=== PATIENT | female | born 1960 | race Caucasian/White ===

== ENCOUNTER 2018-11-29 18:42 | Inpatient (IN) | payer OTHER ==
--- NOTE | 2018-11-29 18:48 | PDOC ---
Rapid Medical Evaluation Chief Complaint: Altered Mental Status Time Seen by Provider: 11/29/18 18:44 Medical Evaluation: Allergies Allergy/AdvReac Type Severity Reaction Status Date / Time No Known Allergies Allergy Verified 01/10/15 20:24 11/29/18 18:45 I have performed a brief in-person evaluation of this patient. The patient presents with a chief complaint of: dizziness and AMS as per family about 45 minutes ago Pertinent physical exam findings:No distress I have ordered the following:stroke work up The patient will proceed to the ED for further evaluation. Discharge Disposition - Diagnosis Altered mental status - Referrals - Patient Instructions - Post Discharge Activity
--- NOTE | 2018-11-29 19:07 | PDOC ---
History of Present Illness - General Chief Complaint: Altered Mental Status Stated Complaint: AMS NUMBNESS Time Seen by Provider: 11/29/18 18:44 - History of Present Illness Initial Comments: The pt is a 58F w/ no reported PMH who presents for evaluation of a short period of memory loss today. The pt's family member reports that the pt had a period of not being able to remember what she was doing/what was happening which has since resolved. During that time she endorses mild blurry vision. At this time the pt reports that that period is starting to come back to her and since that time she has not had any confusion/memory loss. Her vision is also at baseline currently. Of note, patient reports approximately 1 month of intermittent episodes of dizziness/blurry vision that occur spontaneously at rest and resolve spontaneously as well. She states she think the episodes are related to times of emotional stress but is unsure. She has never had an episode of memory loss before. Denies fevers/chills, CAMPBELL, chest pain, trouble breathing, abdominal pain, N/V/C/D , or changes in sensation/strength 11/29/18 19:40 NIH Stroke Scale - Last Known Well Date/Time & Onset Date Last Known Well: 11/29/18 Time Last Known Well: 16:00 - Initial Evaluation Level of consciousness: Alert Ask patient the month and their age: Answers both correctly Ask patient to open & close eyes; make fist and let go: Obeys both correctly Best gaze (horizontal eye movement): Normal Visual field testing: No visual field loss Facial paresis (Show teeth/raise eyebrows/close eyes tight): Normal symmetrical movement Motor Function: Left Arm: Normal Motor Function: Right Arm: Normal (extends arm 90 (or 45) degrees for 10 seconds without drift Motor Function: Left Leg: Normal (extends leg 30 degrees for 5 seconds without drift) Motor Function: Right Leg: Normal (extends leg 30 degrees for 5 seconds without drift) Limb Ataxia: No ataxia Sensory(Use pinprick test arms,legs,trunk,face/side to side): Normal Best language (Describe picture, name items, read sentences): No Aphasia Dysarthria (read several words): Normal articulation Extinction and Inattention: No abnormality - Total Score NIH Stroke Scale Score: 0 Past History - Past Medical History Allergies/Adverse Reactions: Allergies Allergy/AdvReac Type Severity Reaction Status Date / Time No Known Allergies Allergy Verified 11/29/18 18:46 Home Medications: Ambulatory Orders Montelukast Na [Singulair -] 10 mg PO HS #15 tablet 01/10/15 COPD: No HTN: Yes - Immunization History Immunization Up to Date: Yes - Suicide/Smoking/Psychosocial Hx Smoking History: Never smoked Have you smoked in the past 12 months: No Information on smoking cessation initiated: No Hx Alcohol Use: No Drug/Substance Use Hx: No Substance Use Type: None Review of Systems - Review of Systems Able to Perform ROS?: Yes Comments:: GENERAL/CONSTITUTIONAL: No fever or chills HEAD, EYES, EARS, NOSE AND THROAT: No change in vision or hearing changes. No sore throat CARDIOVASCULAR: No chest pain or shortness of breath RESPIRATORY: Denies cough, hemoptysis GASTROINTESTINAL: No nausea, vomiting, diarrhea or constipation GENITOURINARY: No dysuria, frequency, or change in urination MUSCULOSKELETAL: No joint or muscle swelling or pain. No neck or back pain SKIN: No rash ENDOCRINE: No increased thirst. No abnormal weight change HEMATOLOGIC/LYMPHATIC: No anemia, easy bleeding, or history of blood clots ALLERGIC/IMMUNOLOGIC: No hives or skin allergy 11/29/18 19:07 *Physical Exam - Vital Signs Last Vital Signs Temp Pulse Resp BP Pulse Ox 92 H 16 155/92 98 11/29/18 18:46 11/29/18 18:46 11/29/18 18:46 11/29/18 18:46 - Physical Exam Comments: GENERAL: Awake, alert, and oriented to person/place/time, in no acute distress HEAD: No signs of trauma, normocephalic, atraumatic EYES: PERRLA, EOMI, sclera anicteric, conjunctiva clear ENT: Hearing grossly normal, nares patent, oropharynx clear without exudates. Moist mucosa LUNGS: No distress, speaks full sentences, clear to auscultation bilaterally HEART: Regular rate and rhythm, normal S1 and S2, no murmurs appreciated, peripheral pulses normal and equal bilaterally ABDOMEN: Soft, nontender, normoactive bowel sounds. No guarding, no rebound EXTREMITIES: Normal inspection, Normal range of motion, no edema. No clubbing or cyanosis NEUROLOGICAL: Cranial nerves II through XII grossly intact. Normal speech, no focal sensorimotor deficits SKIN: Warm, Dry 11/29/18 19:07 ED Treatment Course - LABORATORY CBC & Chemistry Diagram: 11/29/18 18:57 11/29/18 18:57 Medical Decision Making - Medical Decision Making The pt is a 58F w/ no reported PMH who presents for evaluation of a 20 minute period of time where she could not recall what she had done today. Ddx: TIA/stroke, global transient amnesia PMD: Dr. Gleason ED Course labs sent CXR, CT Head ECG 11/29/18 19:54 No leukocytosis No anemia Lytes wnl No ASHLIE LFTs wnl Trop I neg CT Head w/o acute pathology 11/29/18 19:57 Case discussed w/ Dr. Szymanski, recommends ASA 81mg PO once. Pt states she took ASA 81mg just prior to leaving to come to the ED. 11/29/18 20:09 Pt now states she does have a history of HTN and takes Losartan daily, which she took today. Plan for admission to stroke obs 11/29/18 20:19 *DC/Admit/Observation/Transfer Diagnosis at time of Disposition: Altered mental status Qualifiers: Altered mental status type: transient alteration of awareness Qualified Code(s) : R40.4 - Transient alteration of awareness - Discharge Dispostion Condition at time of disposition: Good Decision to Admit order: Yes - Referrals - Patient Instructions - Post Discharge Activity
[2018-11-29 19:20] LABS: BASO % 0.4 % (0-2.0); EOS % 1.3 % (0-4.5); HEMOGLOBIN 13.3 GM/dL (10.7-15.3); LYMPH % 44.4 % (8-40); MCH 29.3 pg (25.7-33.7); MCHC 33.1 g/dl (32.0-36.0); MEAN CELL VOLUME 88.6 fl (80-96); MEAN PLT VOLUME 7.8 fl (7.5-11.1); NEUT % 46.9 % (42.8-82.8); PLATELET COUNT 269 K/MM3 (134-434); RBC 4.52 M/mm3 (3.60-5.2); RDW 13.9 % (11.6-15.6)
[2018-11-29 19:32] LABS: INR 0.99 (0.83-1.09); PROTHROMBIN TIME (PATIENT) 11.7 SEC (9.7-13.0)
--- NOTE | 2018-11-29 19:37 | PDOC ---
Attending Attestation - HPI HPI: 11/29/18 20:05 The patient is a 58 YOF with no PMH who presents for evaluation of memory loss earlier today. The family at bedside states this episode of memory loss lasted for 20 minutes. Patient could recognize the people in her surroundings but was unable to recall the events from earlier today. She reports the episode of memory loss has resolved on its own. She denies similar episodes in the past. She also notes she has had blurry vision and dizziness intermittently for the past 2 months. Patient also reports significant stress at home with her daughter. The patient denies chest pain, shortness of breath, headache. Denies fever, chills, nausea, vomit, diarrhea and constipation. Denies dysuria, frequency, urgency and hematuria. Allergies: NKA Past surgical history: None reported. Social history: No reported alcohol, drug or cigarette use. PCP: Dr. Gleason - Physicial Exam PE: 11/29/18 20:13 Agree with resident's exam. <Kim Connell - Last Filed: 11/29/18 20:05> - Resident Resident Name: Felix Prince - ED Attending Attestation I have performed the following: I have examined & evaluated the patient, The case was reviewed & discussed with the resident, I agree w/resident's findings & plan - Medical Decision Making 11/29/18 20:27 58-year-old female with an episode of confusion Presentation likely consistent with an episode of TGA though patient has had some intermittent dizziness over the last few weeks She will be admitted to medical service for TIA evaluation Call placed to neurology by the emergency department resident who has recommended low-dose aspirin which patient has already taken She is currently asymptomatic at this time, surrounded by family who confirms history and baseline mental status <Yenifer Bowie - Last Filed: 11/29/18 20:30>
[2018-11-29 19:47] LABS: ALK PHOS 107 U/L (45-117); ANION GAP 8 MMOL/L (8-16); BILIRUBIN,TOTAL 0.3 mg/dL (0.2-1); BLOOD UREA NITROGEN 14 mg/dL (7-18); CALCIUM 8.5 mg/dL (8.5-10.1); CHLORIDE 106 mmol/L (98-107); CO2 27 mmol/L (21-32); CREATININE 0.7 mg/dL (0.55-1.3); GLUCOSE,RANDOM 120 mg/dL (74-106); POTASSIUM 3.5 mmol/L (3.5-5.1); SGOT/AST 11 U/L (15-37); SGPT/ALT 38 U/L (13-61); SODIUM 142 mmol/L (136-145); TOT PROT 7.8 g/dl (6.4-8.2)
[2018-11-29] MEDS ORDERED: ASPIRIN COATED 81 MG TABLET.EC PO ONE (20:09)
[2018-11-29] MEDS ORDERED: ASPIRIN COATED 81 MG TABLET.EC ONE (20:12)
[2018-11-29] MEDS ORDERED: ACETAMINOPHEN 325 MG TABLET (FP) PO PRN (20:16)
[2018-11-29] MEDS ORDERED: ONDANSETRON 4 MG/2 ML VIAL IVPUSH PRN (20:16)
--- NOTE | 2018-11-29 20:21 | HP ---
CHIEF COMPLAINT: Memory loss PCP: Dr. Gleason HISTORY OF PRESENT ILLNESS: This is a 58-year-old female with a history of HTN who presented to the ED today for evaluation of an approximately 20-minute episode of confusion and amnesia associated with tongue and jaw numbness occurring at approximately 6pm today. The patient denies any associated changes in speech, gait, facial symmetry, strength, or sensation. 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 Smoking: Never Alcohol: Occasional Drugs: None Family History: Significant for mother with CVA age 78 Allergies No Known Allergies Allergy (Verified 11/29/18 18:46) HOME MEDICATIONS: Home Medications Medication Instructions Recorded Montelukast Na [Singulair -] 10 mg PO HS #15 tablet 01/10/15 REVIEW OF SYSTEMS CONSTITUTIONAL: Absent: fever, chills, diaphoresis, generalized weakness, malaise, loss of appetite, weight change HEENT: Absent: rhinorrhea, nasal congestion, throat pain, throat swelling, difficulty swallowing, mouth swelling, ear pain, eye pain, visual changes CARDIOVASCULAR: Absent: chest pain, syncope, palpitations, irregular heart rate, lightheadedness , peripheral edema RESPIRATORY: Absent: cough, shortness of breath, dyspnea with exertion, orthopnea, wheezing, stridor, hemoptysis GASTROINTESTINAL: Absent: abdominal pain, abdominal distension, nausea, vomiting, diarrhea, constipation, melena, hematochezia GENITOURINARY: Absent: dysuria, frequency, urgency, hesitancy, hematuria, flank pain, genital pain MUSCULOSKELETAL: Absent: myalgia, arthralgia, joint swelling, back pain, neck pain SKIN: Absent: rash, itching, pallor HEMATOLOGIC/IMMUNOLOGIC: Absent: easy bleeding, easy bruising, lymphadenopathy, frequent infections ENDOCRINE: Absent: unexplained weight gain, unexplained weight loss, heat intolerance, cold intolerance NEUROLOGIC: See HPI Absent: headache, focal weakness or paresthesias, dizziness, unsteady gait, seizure, bladder or bowel incontinence PSYCHIATRIC: Recent feelings of stress/anxiety Absent: depression, suicidal or homicidal ideation, hallucinations. PHYSICAL EXAMINATION Vital Signs - 24 hr 11/29/18 18:46 Pulse Rate 92 H Respiratory 16 Rate Blood Pressure 155/92 O2 Sat by Pulse 98 Oximetry (%) GENERAL: Awake, alert, and fully oriented, in no acute distress. HEAD: Normal with no signs of trauma. EYES: Pupils equal, round and reactive to light, extraocular movements intact, sclera anicteric, conjunctiva clear. No lid lag. EARS, NOSE, THROAT: Ears normal, nares patent, oropharynx clear without exudates. Moist mucous membranes. NECK: Normal range of motion, supple without lymphadenopathy, JVD, or masses. LUNGS: Breath sounds equal, clear to auscultation bilaterally. No wheezes, and no crackles. No accessory muscle use. HEART: Regular rate and rhythm, normal S1 and S2 without murmur, rub or gallop. ABDOMEN: Soft, nontender, not distended, normoactive bowel sounds, no guarding, no rebound, no masses. No hepatomegaly or splenomegaly. MUSCULOSKELETAL: Normal range of motion at all joints. No bony deformities or tenderness. No CVA tenderness. UPPER EXTREMITIES: 2+ pulses, warm, well-perfused. No cyanosis. No clubbing. No peripheral edema. LOWER EXTREMITIES: 2+ pulses, warm, well-perfused. No calf tenderness. No peripheral edema. NEUROLOGICAL: Cranial nerves II-XII intact. Normal speech. PSYCHIATRIC: Cooperative. Good eye contact. Appropriate mood and affect. SKIN: Warm, dry, normal turgor, no rashes or lesions noted, normal capillary refill. Laboratory Results - last 24 hr 11/29/18 11/29/18 11/29/18 18:57 18:57 18:57 WBC 8.0 RBC 4.52 Hgb 13.3 Hct 40.0 MCV 88.6 MCH 29.3 MCHC 33.1 RDW 13.9 Plt Count 269 MPV 7.8 Absolute Neuts (auto) 3.7 Neutrophils % 46.9 Lymphocytes % 44.4 H Monocytes % 7.0 Eosinophils % 1.3 Basophils % 0.4 Nucleated RBC % 0 PT with INR 11.70 INR 0.99 Sodium 142 Potassium 3.5 Chloride 106 Carbon Dioxide 27 Anion Gap 8 BUN 14 Creatinine 0.7 Creat Clearance w eGFR 86.25 Random Glucose 120 H Calcium 8.5 Total Bilirubin 0.3 AST 11 L ALT 38 Alkaline Phosphatase 107 Creatine Kinase 108 Troponin I < 0.02 Total Protein 7.8 Albumin 4.0 ASSESSMENT/PLAN: 58-year-old female with transient confusion/amnesia and jaw/ tongue numbness concerning for TIA. Problem List - Problem (1) Altered mental status Assessment/Plan: -Symptoms resolved -Monitor neurologic exam -Neurology consultation requested -MRI brain w/o contrast -ASA 81mg daily Code(s): R41.82 - ALTERED MENTAL STATUS, UNSPECIFIED Qualifiers: Altered mental status type: transient alteration of awareness Qualified Code(s): R40.4 - Transient alteration of awareness (2) Hypertension Assessment/Plan: -Near goal -Continue Losartan Code(s): I10 - ESSENTIAL (PRIMARY) HYPERTENSION (3) DVT prophylaxis Assessment/Plan: -Low risk -Early ambulation Code(s): [id number] - Visit type - Emergency Visit Emergency Visit: Yes ED Registration Date: 11/29/18 Care time: The patient presented to the Emergency Department on the above date and was hospitalized for further evaluation of their emergent condition. - New Patient This patient is new to me today: Yes Date on this admission: 11/29/18 - Critical Care Critical Care patient: No
[2018-11-29] MEDS: DOCUSATE SODIUM 100 MG CAPSULE (FP) PO SCH (22:02)
[2018-11-29] MEDS ORDERED: HALOPERIDOL 5 MG TABLET (FP) PO ONE (22:13)
[2018-11-30 00:03] VITALS: BMI 36.8
[2018-11-30] MEDS: DOCUSATE SODIUM 100 MG CAPSULE (FP) PO SCH ×3 (06:35→22:33)
[2018-11-30 07:44] LABS: BASO % 0.5 % (0-2.0); EOS % 1.9 % (0-4.5); HEMATOCRIT 38.2 % (32.4-45.2); HEMOGLOBIN 12.6 GM/dL (10.7-15.3); MCH 29.2 pg (25.7-33.7); MEAN CELL VOLUME 88.6 fl (80-96); MEAN PLT VOLUME 8.2 fl (7.5-11.1); MONO % 7.1 % (3.8-10.2); NEUT % 37.5 % (42.8-82.8); PLATELET COUNT 267 K/MM3 (134-434); RBC 4.31 M/mm3 (3.60-5.2); RDW 13.6 % (11.6-15.6); WHITE BLOOD COUNT 4.9 K/mm3 (4.0-10.0)
[2018-11-30 08:37] LABS: ALBUMIN 3.6 g/dl (3.4-5.0); ALK PHOS 87 U/L (45-117); ANION GAP 9 MMOL/L (8-16); BILIRUBIN,TOTAL 0.6 mg/dL (0.2-1); BLOOD UREA NITROGEN 11 mg/dL (7-18); CALCIUM 8.2 mg/dL (8.5-10.1); CHLORIDE 108 mmol/L (98-107); CHOLESTEROL 199 mg/dL (50-200); CO2 25 mmol/L (21-32); CREATININE 0.6 mg/dL (0.55-1.3); GLUCOSE,RANDOM 103 mg/dL (74-106); HDL CHOLESTEROL 50 mg/dL (40-60); POTASSIUM 3.7 mmol/L (3.5-5.1); SGOT/AST 10 U/L (15-37); SGPT/ALT 33 U/L (13-61); SODIUM 143 mmol/L (136-145); TOT PROT 6.9 g/dl (6.4-8.2); TRIGLYCERIDES 93 mg/dL (0-150)
[2018-11-30] MEDS: ASPIRIN COATED 81 MG TABLET.EC PO SCH (09:47)
[2018-11-30] MEDS: LOSARTAN POTASSIUM 50 MG TABLET (FP) PO SCH (09:47)
--- NOTE | 2018-11-30 11:47 | EKG ---
Test Reason : Blood Pressure : / mmHG Vent. Rate : 101 BPM Atrial Rate : 101 BPM P-R Int : 142 ms QRS Dur : 080 ms QT Int : 340 ms P-R-T Axes : 034 006 031 degrees QTc Int : 440 ms POOR DATA QUALITY, INTERPRETATION MAY BE ADVERSELY AFFECTED SINUS TACHYCARDIA OTHERWISE NORMAL ECG NO PREVIOUS ECGS AVAILABLE Confirmed by PAUL ARRIOLA, CICI ([id number]) on 11/30/2018 11:47:37 AM Referred By: Confirmed By:CICI MILLER MD
[2018-11-30 13:23] LABS: EPI CELLS 3.6 /HPF (0-5); URINE APPEARANCE CLEAR; URINE BACTERIA 140.9 /hpf (NEGATIVE); URINE BILIRUBIN NEGATIVE (NEGATIVE); URINE CASTS 2 /hpf (0-8); URINE COLOR YELLOW; URINE GLUCOSE (UA) NEGATIVE (NEGATIVE); URINE KETONE NEGATIVE (NEGATIVE); URINE LEUK ESTERASE TRACE (NEGATIVE); URINE NITRITE NEGATIVE (NEGATIVE); URINE PROTEIN NEGATIVE (NEGATIVE); URINE RBC 2 /hpf (0-4); URINE UROBILINOGEN 0.2 mg/dL (0.2-1.0); URINE WBC 4 /hpf (0-5)
--- NOTE | 2018-11-30 13:43 | PN ---
Progress Note, Physician Chief Complaint: patient admitted for amnesia episode awaiting neurology eval and EEG awake alert today memory has improved able to remember what she ate yesterday morning for breakfast what her family remember at the bedside brought for her - Current Medication List Current Medications: Active Medications Acetaminophen (Tylenol -) 650 mg PO Q6H PRN PRN Reason: FEVER Aspirin (Ecotrin -) 81 mg PO DAILY [facility] Last Admin: 11/30/18 09:47 Dose: 81 mg Docusate Sodium (Colace -) 100 mg PO TID [facility] Last Admin: 11/30/18 06:35 Dose: 100 mg Losartan Potassium (Cozaar -) 50 mg PO DAILY [facility] Last Admin: 11/30/18 09:47 Dose: 50 mg Ondansetron HCl (Zofran Injection) 4 mg IVPUSH Q6H PRN PRN Reason: NAUSEA - Objective Vital Signs: Vital Signs Temperature 98.1 F 11/30/18 09:45 Pulse Rate 78 11/30/18 09:45 Respiratory Rate 18 11/30/18 09:45 Blood Pressure 142/80 11/30/18 09:45 O2 Sat by Pulse Oximetry (%) 99 11/30/18 00:34 Constitutional: Yes: Calm Cardiovascular: Yes: Regular Rate and Rhythm, S1, S2 Respiratory: Yes: CTA Bilaterally Gastrointestinal: Yes: Normal Bowel Sounds, Soft Edema: No Neurological: Yes: Alert Labs: CBC, BMP 11/30/18 05:30 11/30/18 05:30 INR, PTT INR 0.99 (0.83-1.09) 11/29/18 18:57 Problem List - Problems (1) Altered mental status Assessment/Plan: amnesia r/o possible seizure activity neurology consult EEG and MRI today possible dc home in AM if work up is negative b12,rpr ordered lipid panel noted inc LDL diet control Code(s): R41.82 - ALTERED MENTAL STATUS, UNSPECIFIED Qualifiers: Altered mental status type: transient alteration of awareness Qualified Code(s): R40.4 - Transient alteration of awareness
--- NOTE | 2018-11-30 16:33 | CONSULT ---
Consult - text type - Consultation Consultation Note: NEUROLOGY CONSULT APPRECIATED: Events reviewed and discussed with RN and Josemanuel Castillo PA. Patient examined. 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 Here after 2 weeks of 3, brief, episodes of seeing "brightness" in both eyes that last a few seconds. Also with intermittent "dizziness" when standing. Admitted after family concerned about confused speech for approximately 20 minutes that didn't "make sense." Pt, however, denies any confusion or change in speech and recalls being in the kitchen preparing food. Pt acknowledges occasional headaches, and notes extensive family history of headaches in her sister and mother (recent stroke in 70s). Head CT (reviewed): essentially normal study MRI of brain (reviewed): notable for chronic lacunar infarcts in right and left cerebellum with subacute infarct in left cerebellum superior/laterally. MR Angio (reviewed but not yet reported): Normal intracranial vasculature EKG Sinus Tach 100s B12 362 TSH 1.66 RPR nonreactive UA WBC=4 MACK: BP 155/92 on admission. Now 135/74. Cor reg. No bruit. Neck supple. NEURO:Awake, alert, cooperative. In NAD Mentation/Speech: OX [facility]. November 30, 2018. TRUMP. With good reversals. 2/3 recall @ 3. CNII-CNXII: EOM intact. Full quintero appreciated. No facial. Motor: No drift or tremor. Normal strength, tone, bulk and reflexes. Toes downgoing Coordination: No FTN dystaxia. Sensation: Normal to vibration. Romberg - Gait: Normal stride. Pt can walk on heels and toes without difficulty. Impression: 1. Normal neurological exam 2. 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 3. Transient neurological symptoms of uncertain etiology. Consider TIA, Migraine aura/complicated migraine, new-onset Complex partial seizures. Suggest: Agree with admission and telemetry to r/o arrhythmia. Obtain carotid duplex Await EEG monitoring Continue systolic BP control in 120s-130s Continue ASA, statin Thank you very much, Rocky Velazquez MD
--- NOTE | 2018-11-30 17:19 | CON.NEURO ---
Consult Consult Specialty:: Nessa Referred by:: ER - History of Present Illness History of Present Illness: 58 years old woman withPMH CAD OA Obesity Patient came in with episode of confusion [facility] yesterday No fall No headache No weight loss Last week episode of dizziness - History Source History Provided By: Patient, Medical Record Limitations to Obtaining History: No Limitations - Past Medical History ...: No - Alcohol/Substance Use Hx Alcohol Use: No - Smoking History Smoking history: Never smoked Have you smoked in the past 12 months: No Home Medications - Allergies Allergies/Adverse Reactions: Allergies Allergy/AdvReac Type Severity Reaction Status Date / Time No Known Allergies Allergy Verified 11/29/18 18:46 - Home Medications Home Medications: Ambulatory Orders Aspirin [ASA -] 81 mg PO PRN PRN 11/29/18 Losartan Potassium [Cozaar -] 50 mg PO DAILY 11/29/18 Family Disease History - Family Disease History Family History: Denies (CVA) Review of Systems - Review of Systems Constitutional: reports: No Symptoms Eyes: reports: No Symptoms HENT: reports: No Symptoms Neck: reports: No Symptoms Neurological: reports: Headache, Incoordination, Numbness Physical Exam-Neuro Vital Signs: Vital Signs Temperature 97.9 F 11/30/18 14:00 Pulse Rate 88 11/30/18 14:00 Respiratory Rate 18 11/30/18 09:45 Blood Pressure 146/78 11/30/18 14:00 O2 Sat by Pulse Oximetry (%) 96 11/30/18 09:00 Constitutional: Yes: Well Nourished Neck: Yes: WNL Cardiovascular: Yes: WNL Labs: CBC, BMP 11/30/18 05:30 11/30/18 05:30 INR, PTT INR 0.99 (0.83-1.09) 11/29/18 18:57 - Neuro Exam Level Of Consciousness: Yes: Oriented to Person, Oriented to Place, Oriented to Time Eyes: Yes: PERRLA Speech: WNL Dominant Hand: Right Cranial Nerves II-XII Intact: Yes Gag: Present DTR's: 0 Left Achilles, 0 Right Achilles, 1+ Left Bicep, 1+ Right Bicep, 1+ Left Brachioradialis, 1+ Right Brachioradialis Response to light touch: Normal Response to pain prick: Normal Response to temperature: Normal Motor Strength: 3/5: Left Arm, Right Arm, Left Leg, Right Leg Gait: Deferred Imaging - Results Cat Scan: Image Reviewed Problem List - Problems (1) Altered mental status Assessment/Plan: TIA vs TGA Doubt TIA Rule iut partial seizure 1. Neuro check 2. DVT prophylaxis 3. Weight loss 4. baby ASA 5. MRI brain with no consuelo 6. EEG Thank you for the kind referral Code(s): R41.82 - ALTERED MENTAL STATUS, UNSPECIFIED Qualifiers: Altered mental status type: transient alteration of awareness Qualified Code(s): R40.4 - Transient alteration of awareness
--- NOTE | 2018-11-30 17:42 | CON.CARD ---
Consult Consult Specialty:: Cardiology Reason for Consultation:: Possible TIA - History of Present Illness History of Present Illness: 58 F long standing HTN admitted with amnesia. Testing is negative so far but TIA is in differential. No previous heart disease that is known. No palpitations. telem NSR - Past Medical History ...: No - Alcohol/Substance Use Hx Alcohol Use: No - Smoking History Smoking history: Never smoked Have you smoked in the past 12 months: No Home Medications - Allergies Allergies/Adverse Reactions: Allergies Allergy/AdvReac Type Severity Reaction Status Date / Time No Known Allergies Allergy Verified 11/29/18 18:46 - Home Medications Home Medications: Ambulatory Orders Aspirin [ASA -] 81 mg PO PRN PRN 11/29/18 Losartan Potassium [Cozaar -] 50 mg PO DAILY 11/29/18 Review of Systems - Review of Systems Constitutional: reports: No Symptoms Eyes: reports: No Symptoms HENT: reports: No Symptoms Neck: reports: No Symptoms Cardiovascular: reports: No Symptoms Respiratory: reports: No Symptoms Gastrointestinal: reports: No Symptoms Genitourinary: reports: No Symptoms Musculoskeletal: reports: No Symptoms Vital Signs: Vital Signs Temperature 97.9 F 11/30/18 14:00 Pulse Rate 88 11/30/18 14:00 Respiratory Rate 18 11/30/18 09:45 Blood Pressure 146/78 11/30/18 14:00 O2 Sat by Pulse Oximetry (%) 96 11/30/18 09:00 Constitutional: Yes: Well Nourished, No Distress Eyes: Yes: Conjunctiva Clear HENT: Yes: Atraumatic, Normocephalic Neck: Yes: Supple, Trachea Midline Respiratory: Yes: Regular, CTA Bilaterally Gastrointestinal: Yes: Normal Bowel Sounds Renal/: Yes: WNL Cardiovascular: Yes: Regular Rate and Rhythm JVD: No Carotid Bruit: No PMI: Non-Displaced Heart Sounds: Yes: S1, S2 Murmur: No: Systolic Murmur, Diastolic Murmur Edema: No - Other Data Labs, Other Data: CBC, BMP 11/30/18 05:30 11/30/18 05:30 INR, PTT INR 0.99 (0.83-1.09) 11/29/18 18:57 Troponin, BNP 11/29/18 11/30/18 18:57 05:30 Troponin I < 0.02 < 0.02 Troponin, BNP 11/29/18 11/30/18 18:57 05:30 Troponin I < 0.02 < 0.02 Problem List - Problems (1) Altered mental status Code(s): R41.82 - ALTERED MENTAL STATUS, UNSPECIFIED Qualifiers: Altered mental status type: transient alteration of awareness Qualified Code(s): R40.4 - Transient alteration of awareness Assessment/Plan Admitted with amnesia. possibly transient global amnesia. Less likely TIA Echo Telem Out patient event monitor for 1 week
[2018-11-30] MEDS: ATORVASTATIN CA 40 MG TABLET (FP) PO SCH (22:32)
[2018-11-30] MEDS ORDERED: amLODIPine BESYLATE 5 MG TABLET (FP) PO ONE (23:00)
[2018-12-01] MEDS: DOCUSATE SODIUM 100 MG CAPSULE (FP) PO SCH ×3 (06:11→21:21)
[2018-12-01] MEDS: ASPIRIN COATED 81 MG TABLET.EC PO SCH ×2 (08:57→11:32)
[2018-12-01] MEDS: LOSARTAN POTASSIUM 50 MG TABLET (FP) PO SCH ×2 (08:57→11:31)
--- NOTE | 2018-12-01 09:49 | PN ---
Progress Note, Physician - Current Medication List Current Medications: Active Medications Acetaminophen (Tylenol -) 650 mg PO Q6H PRN PRN Reason: FEVER Aspirin (Ecotrin -) 81 mg PO DAILY [facility] Last Admin: 12/01/18 08:57 Dose: 81 mg Atorvastatin Calcium (Lipitor -) 40 mg PO HS [facility] Last Admin: 11/30/18 22:32 Dose: 40 mg Docusate Sodium (Colace -) 100 mg PO TID [facility] Last Admin: 12/01/18 06:11 Dose: Not Given Losartan Potassium (Cozaar -) 50 mg PO DAILY [facility] Last Admin: 12/01/18 08:57 Dose: 50 mg Ondansetron HCl (Zofran Injection) 4 mg IVPUSH Q6H PRN PRN Reason: NAUSEA - Objective Vital Signs: Vital Signs Temperature 97 F L 12/01/18 08:51 Pulse Rate 80 12/01/18 08:51 Respiratory Rate 20 12/01/18 08:51 Blood Pressure 159/90 12/01/18 08:51 O2 Sat by Pulse Oximetry (%) 97 11/30/18 21:00 Cardiovascular: Yes: Regular Rate and Rhythm Respiratory: Yes: Regular, CTA Bilaterally Gastrointestinal: Yes: Normal Bowel Sounds, Soft Neurological: Yes: Alert, Oriented Labs: CBC, BMP 11/30/18 05:30 11/30/18 05:30 INR, PTT INR 0.99 (0.83-1.09) 11/29/18 18:57 Problem List - Problems (1) CVA (cerebral vascular accident) Assessment/Plan: on statin/asa neurology consult EEG carotid lipid panel noted --on lipitor diet control Code(s): I63.9 - CEREBRAL INFARCTION, UNSPECIFIED (2) Altered mental status Assessment/Plan: --due to above Code(s): R41.82 - ALTERED MENTAL STATUS, UNSPECIFIED Qualifiers: Altered mental status type: transient alteration of awareness Qualified Code(s): R40.4 - Transient alteration of awareness (3) Hypertension Assessment/Plan: Vital Signs Period Temp Pulse Resp BP Sys/Deshpande Pulse Ox Last 24 Hr 97 F-98.6 F 75-88 20-20 125-167/76-97 97 monitor Code(s): I10 - ESSENTIAL (PRIMARY) HYPERTENSION
--- NOTE | 2018-12-01 11:23 | ECHO ---
Name: SHAYLA BERMEO Exam:Adult Echocardiogram Study Date: 12/01/2018 09:59 AM Age: 58 yrs Reason For Study: LVEF Height: 61 in Weight: 195 lb BSA: 1.9 m2 MMode/2D Measurements & Calculations IVSd: 0.92 cm Ao root diam: 2.6 cm LVIDd: 4.6 cm LA dimension: 3.1 cm LVIDs: 3.0 cm LVPWd: 0.73 cm EDV(Teich): 95.2 ml LVOT diam: 2.0 cm ESV(Teich): 33.9 ml TAPSE: 2.5 cm Doppler Measurements & Calculations MV E max uriah: 66.1 cm/sec Ao V2 max: 161.0 cm/sec MV A max uriah: 94.8 cm/sec Ao max P.4 mmHg MV E/A: 0.70 Ao V2 mean: 105.9 cm/sec MV dec time: 0.21 sec Ao mean P.3 mmHg Ao V2 VTI: 30.2 cm GERA(I,D): 2.3 cm2 AI P1/2t: 421.5 msec GERA(V,D): 2.3 cm2 AI max uriah: 400.7 cm/sec LV V1 max P.6 mmHg AI max P.2 mmHg LV V1 mean P.2 mmHg AI dec slope: 278.4 cm/sec2 LV V1 max: 118.5 cm/sec LV V1 mean: 85.5 cm/sec LV V1 VTI: 22.3 cm MR max uriah: 462.7 cm/sec SV(LVOT): 69.6 ml MR max P.9 mmHg TR max uriah: 225.1 cm/sec PI end-d uriah: 148.0 cm/sec TR max P.4 mmHg Med Peak E' Uriah: 5.3 cm/sec Med E/e': 12.4 Lat Peak E' Uriah: 7.5 cm/sec Lat E/e': 8.8 Left Ventricle There is borderline concentric left ventricular hypertrophy. The left ventricular ejection fraction i s normal. Ejection Fraction = 60%. The transmitral spectral Doppler flow pattern is suggestive of impaired LV relaxation. The left ventricular wall motion is normal. Right Ventricle The right ventricular systolic function is normal. Atria Normal left and right atrial size and function. Mitral Valve There is mild mitral valve thickening. There is mild mitral annular calcification. There is mild mitr al regurgitation. Tricuspid Valve There is mild tricuspid regurgitation. Right ventricular systolic pressure is normal. Aortic Valve There is mild aortic valve thickening. There is mild aortic sclerosis.;. Mild aortic regurgitation. Pulmonic Valve Trace to mild pulmonic valvular regurgitation. Great Vessels The aortic root is normal size. Pericardium/Pleura There is no pericardial effusion. Interpretation Summary The left ventricular ejection fraction is normal. Ejection Fraction = 60%. The transmitral spectral Doppler flow pattern is suggestive of impaired LV relaxation. The left ventricular wall motion is normal. There is borderline concentric left ventricular hypertrophy. The right ventricular systolic function is normal. Normal left and right atrial size and function. There is mild mitral valve thickening. There is mild mitral annular calcification. There is mild mitral regurgitation. There is mild tricuspid regurgitation. Right ventricular systolic pressure is normal. Trace to mild pulmonic valvular regurgitation. There is mild aortic valve thickening. There is mild aortic sclerosis.; Mild aortic regurgitation. The aortic root is normal size. There is no pericardial effusion. Zeferino Guzman MD 12/01/2018 11:23 AM
--- NOTE | 2018-12-01 14:24 | PN ---
Progress Note, Physician Chief Complaint: Cardiology FU Telem NSR No arrhythmia Echo normal. History of Present Illness: 58 F long standing HTN admitted with amnesia. Testing is negative so far but TIA is in differential. No previous heart disease that is known. No palpitations. telem NSR - Current Medication List Current Medications: Active Medications Acetaminophen (Tylenol -) 650 mg PO Q6H PRN PRN Reason: FEVER Aspirin (Ecotrin -) 81 mg PO DAILY [facility] Last Admin: 12/01/18 11:32 Dose: Not Given Atorvastatin Calcium (Lipitor -) 40 mg PO HS [facility] Last Admin: 11/30/18 22:32 Dose: 40 mg Docusate Sodium (Colace -) 100 mg PO TID [facility] Last Admin: 12/01/18 06:11 Dose: Not Given Losartan Potassium (Cozaar -) 50 mg PO DAILY [facility] Last Admin: 12/01/18 11:31 Dose: Not Given Ondansetron HCl (Zofran Injection) 4 mg IVPUSH Q6H PRN PRN Reason: NAUSEA - Objective Vital Signs: Vital Signs Temperature 97 F L 12/01/18 08:51 Pulse Rate 80 12/01/18 08:51 Respiratory Rate 20 12/01/18 09:00 Blood Pressure 159/90 12/01/18 08:51 O2 Sat by Pulse Oximetry (%) 97 12/01/18 09:00 Constitutional: Yes: Well Nourished, No Distress, Calm Eyes: Yes: Conjunctiva Clear, EOM Intact HENT: Yes: Atraumatic, Normocephalic Neck: Yes: Supple, Trachea Midline Cardiovascular: Yes: Regular Rate and Rhythm, S1, S2. No: JVD, Rub Respiratory: Yes: Regular, CTA Bilaterally Gastrointestinal: Yes: Normal Bowel Sounds, Soft Edema: No Labs: CBC, BMP 11/30/18 05:30 11/30/18 05:30 INR, PTT INR 0.99 (0.83-1.09) 11/29/18 18:57 Problem List - Problems (1) Altered mental status Code(s): R41.82 - ALTERED MENTAL STATUS, UNSPECIFIED Qualifiers: Altered mental status type: transient alteration of awareness Qualified Code(s): R40.4 - Transient alteration of awareness Assessment/Plan Admitted with amnesia. possibly transient global amnesia. Less likely TIA Out patient event monitor for 1 week Please call with any questions
[2018-12-01] MEDS: ATORVASTATIN CA 40 MG TABLET (FP) PO SCH (21:21)
[2018-12-02] MEDS: DOCUSATE SODIUM 100 MG CAPSULE (FP) PO SCH (06:18)
[2018-12-02 09:14] VITALS: BP 162/90; PULSE 80; TEMP 97.9
[2018-12-02] MEDS: LOSARTAN POTASSIUM 50 MG TABLET (FP) PO SCH (09:35)
[2018-12-02] MEDS: ASPIRIN COATED 81 MG TABLET.EC PO SCH (09:35)
--- NOTE | 2018-12-02 12:17 | DS ---
Physical Examination Vital Signs: Vital Signs Temperature 97.9 F 12/02/18 09:00 Pulse Rate 80 12/02/18 09:00 Respiratory Rate 18 12/02/18 09:00 Blood Pressure 162/90 12/02/18 09:00 O2 Sat by Pulse Oximetry (%) 99 12/02/18 09:00 Labs: CBC, BMP 11/30/18 05:30 11/30/18 05:30 Discharge Summary Reason For Visit: ALTERED MENTAL STATUS HYPERTENSION Current Active Problems Altered mental status (Acute) CVA (cerebral vascular accident) (Acute) DVT prophylaxis (Acute) Hypertension (Acute) Hospital Course: Problems (1) CVA (cerebral vascular accident) Assessment/Plan: on statin/asa neurology consult noted EEG carotid lipid panel noted --on lipitor diet control cardio follow up as outpatient Code(s): I63.9 - CEREBRAL INFARCTION, UNSPECIFIED (2) Altered mental status Assessment/Plan: --due to above Code(s): R41.82 - ALTERED MENTAL STATUS, UNSPECIFIED Qualifiers: Altered mental status type: transient alteration of awareness Qualified Code(s): R40.4 - Transient alteration of awareness (3) Hypertension Assessment/Plan: on arb add bystolic V monitor Code(s): I10 - ESSENTIAL (PRIMARY) HYPERTENSION Condition: Good - Instructions Diet, Activity, Other Instructions: See your doctor in one week Disposition: HOME - Home Medications Comprehensive Discharge Medication List: Ambulatory Orders Aspirin [ASA -] 81 mg PO PRN PRN 11/29/18 Losartan Potassium [Cozaar -] 50 mg PO DAILY 11/29/18 Acetaminophen [Tylenol .Regular Strength -] 650 mg PO Q6H PRN tablet 12/02/18 Atorvastatin Ca [Lipitor] 40 mg PO HS #30 tablet 12/02/18 Docusate Sodium [Colace -] 100 mg PO TID capsule 12/02/18
[2018-12-02] MEDS ORDERED: NEBIVOLOL 5 MG TABLET (FP) PO SCH (12:30)
--- NOTE | 2018-12-02 12:46 | PN ---
Progress Note, Physician History of Present Illness: events noted Chart reviewed Alert awake oriented No cardiac arrhythmia on telemetry Results of the MRI noted results of the MRA noted EEG is within normal - Current Medication List Current Medications: Active Medications Acetaminophen (Tylenol -) 650 mg PO Q6H PRN PRN Reason: FEVER Aspirin (Ecotrin -) 81 mg PO DAILY [facility] Last Admin: 12/02/18 09:35 Dose: 81 mg Atorvastatin Calcium (Lipitor -) 40 mg PO HS [facility] Last Admin: 12/01/18 21:21 Dose: 40 mg Docusate Sodium (Colace -) 100 mg PO TID [facility] Last Admin: 12/02/18 06:18 Dose: 100 mg Losartan Potassium (Cozaar -) 50 mg PO DAILY [facility] Last Admin: 12/02/18 09:35 Dose: 50 mg Nebivolol (Bystolic -) 5 mg PO DAILY [facility] Last Admin: 12/02/18 12:29 Dose: 5 mg Ondansetron HCl (Zofran Injection) 4 mg IVPUSH Q6H PRN PRN Reason: NAUSEA - Objective Vital Signs: Vital Signs Temperature 97.9 F 12/02/18 09:00 Pulse Rate 80 12/02/18 09:00 Respiratory Rate 18 12/02/18 09:00 Blood Pressure 162/90 12/02/18 09:00 O2 Sat by Pulse Oximetry (%) 99 12/02/18 09:00 Constitutional: Yes: Well Nourished Eyes: Yes: WNL Neurological: Yes: Alert, Oriented, Babinski negative ...Motor Strength: WNL Labs: CBC, BMP 11/30/18 05:30 11/30/18 05:30 INR, PTT INR 0.99 (0.83-1.09) 11/29/18 18:57 Problem List - Problems (1) Altered mental status Assessment/Plan: small lacunar stroke Hypertension Transient global amnesia 1. Tight blood pressure control. 2. Baby aspirin. 3. Target cholesterol less than 170. 4. Weight loss. 5. Neurologically patient can go home Code(s): R41.82 - ALTERED MENTAL STATUS, UNSPECIFIED Qualifiers: Altered mental status type: transient alteration of awareness Qualified Code(s): R40.4 - Transient alteration of awareness
== END 2018-12-02 14:20 | disposition home or self-care (01) | DRG 45 ==
LOC: JER 18:42 → JERBED 19:59 → J4W 23:20 → OBSVTOIN 11-30 15:48
PROVIDERS: ADMIT Family Medicine; ATTEND Family Medicine
DX: I63.9 Cerebral infarction, unspecified (principal); R41.82 Altered mental status, unspecified; I10 Essential (primary) hypertension; E66.9 Obesity, unspecified; Z68.36 Body mass index [BMI] 36.0-36.9, adult; E78.5 Hyperlipidemia, unspecified; Z91.14 Patient's other noncompliance with medication regimen; G45.4 Transient global amnesia
CPT/HCPCS: 36415; 70450-TC; 70544-TC; 70551-TC; 71045-TC-FY; 80053; 80061; 81003; 82550; 82607; 83036; 83721; 84443; 84484; 85025; 85610; 86593; 86850; 86900; 86901; 87086; 87186; 93005; 93010; 93306-TC; 93880-TC; 95816; 97116-GP; 97161-GP; 99284-25; G0378